=== PATIENT | female | born 1955 | race African-American/Black ===

== ENCOUNTER 2016-07-01 07:18 | Day surgery (SDC) | payer MEDICARE, BC ==
--- NOTE | ~2016-07-01 | EGD ---
EGD REPORT [facility] [address] [address] NAME: FLORENTIN SEYMOUR : [birth year] [place] [facility] [place] [id number] AGE: 60 ADM/REG DATE : 07/01/16 MR#: [id number] REPORT SERV DATE: 07/01/16 DICTATED BY: DAVIS WHITE DATE: 07/01/16 REPORT STATUS : Draft [facility]: [facility] DATE: 07/01/16 Endoscopy Center Patient Name: Florentin Seymour Date of : 1955 Attending MD: DAVIS WHITE MD Procedure Date No Time: 07/01/2016 Procedure: Colonoscopy Indications: Screening for colorectal malignant neoplasm Referring MD: YSLVIA OSBORNE Medicines: Monitored Anesthesia Care Complications: No immediate complications. Procedure: Pre-Anesthesia Assessment: - ASA Grade Assessment: III - A patient with severe systemic disease. After I obtained informed consent, the scope was passed under direct vision. Throughout the procedure, the patient's blood pressure, pulse, and oxygen saturations were monitored continuously. The CF [id number] was introduced through the anus and advanced to the cecum, identified by appendiceal orifice and ileocecal valve. The colonoscopy was performed without difficulty. The patient tolerated the procedure well. The quality of the bowel preparation was good. Findings: Hemorrhoids were found during retroflexion and were mild. A sessile polyp was found in the transverse colon. The polyp was 8 mm in size. The polyp was removed with a cold snare. Resection and retrieval were complete. Impression: - Hemorrhoids. - One 8 mm polyp in the transverse colon. Resected and retrieved. Recommendation: - Patient has a contact number available for emergencies. The signs and symptoms of potential delayed complications were discussed with the patient. Return to normal activities tomorrow. Written discharge instructions were provided to the patient. - Regular diet. - Continue present medications. - Repeat colonoscopy in 5-10 years for surveillance based on pathology results. - Return to GI clinic PRN. EGD REPORT [facility] [address] [address] NAME: FLORENTIN SEYMOUR : [birth year] [place] [facility] [place] [id number] AGE: 60 ADM/REG DATE : 07/01/16 MR#: [id number] REPORT SERV DATE: 07/01/16 DICTATED BY: DAVIS WHITE DATE: 07/01/16 REPORT STATUS : Draft TRANSCRIBED BY: [employer] DATE: 07/01/16 Procedure Code(s): --- Professional --- 77398, Colonoscopy, flexible, proximal to splenic flexure; with removal of tumor(s), polyp(s), or other lesion(s) by snare technique Diagnosis Code(s): --- Professional --- K64.9, Unspecified hemorrhoids D12.3, Benign neoplasm of transverse colon Z12.11, Encounter for screening for malignant neoplasm of colon CPT copyright 2013 [employer]. All rights reserved. The codes documented in this report are preliminary and upon hospice spiritual care coordinator review may be revised to meet current compliance requirements. DAVIS WHITE MD 07/01/2016 9:18 AM This report has been signed electronically. Number of Addenda: 0 Note Initiated On: 07/01/2016 8:43 AM Scope Withdrawal Time 0 hours 6 minutes 22 seconds [address] [place] [address]
--- NOTE | ~2016-07-01 | EGD ---
EGD REPORT [facility] [address] [address] NAME: FLORENTIN SEYMOUR : [birth year] [place] [facility] [place] [id number] AGE: 60 ADM/REG DATE : 07/01/16 MR#: [id number] REPORT SERV DATE: 07/01/16 DICTATED BY: DAVIS WHITE DATE: 07/01/16 REPORT STATUS : Draft [facility]: [facility] DATE: 07/01/16 Endoscopy Center Patient Name: Florentin Seymour Date of : 1955 Attending MD: DAVIS WHITE MD Procedure Date No Time: 07/01/2016 Procedure: Upper GI endoscopy Indications: Dysphagia, Esophageal reflux Referring MD: SYLVIA OSBORNE Medicines: Monitored Anesthesia Care Complications: No immediate complications. Procedure: Pre-Anesthesia Assessment: - ASA Grade Assessment: III - A patient with severe systemic disease. After obtaining informed consent, the endoscope was passed under direct vision. Throughout the procedure, the patient's blood pressure, pulse, and oxygen saturations were monitored continuously. The GIF [id number] was introduced through the mouth, and advanced to the second part of duodenum. The upper GI endoscopy was accomplished without difficulty. The patient tolerated the procedure well. Findings: No endoscopic abnormality was evident in the esophagus to explain the patient's complaint of dysphagia. It was decided, however, to proceed with dilation of the entire esophagus. A guidewire was placed and the scope was withdrawn. Dilation was performed with a Savary dilator with no resistance at 48 Fr. Estimated blood loss: none. A small hiatus hernia was present. The first part of the duodenum and 2nd part of the duodenum were normal. The cardia and gastric fundus were normal on retroflexion. Impression: - No endoscopic esophageal abnormality to explain patient's dysphagia. Esophagus dilated. Dilated. - Hiatus hernia. - Normal first part of the duodenum and 2nd part of the duodenum. Recommendation: - Follow an antireflux regimen. - Continue present medications. Procedure Code(s): --- Professional --- 90363, Esophagogastroduodenoscopy, flexible, transoral; with insertion of guide wire followed by passage of EGD REPORT [facility] [address] [place]. [address] NAME: FLORENTIN SEYMOUR : [birth year] [place] [facility] [place] [id number] AGE: 60 ADM/REG DATE : 07/01/16 MR#: [id number] REPORT SERV DATE: 07/01/16 DICTATED BY: DAVIS WHITE DATE: 07/01/16 REPORT STATUS : Draft TRANSCRIBED BY: [employer] DATE: 07/01/16 dilator(s) through esophagus over guide wire Diagnosis Code(s): --- Professional --- R13.10, Dysphagia, unspecified K44.9, Diaphragmatic hernia without obstruction or gangrene K21.9, Gastro-esophageal reflux disease without esophagitis CPT copyright 2013 [employer]. All rights reserved. The codes documented in this report are preliminary and upon system validation engineer review may be revised to meet current compliance requirements. DAVIS WHITE MD 07/01/2016 9:02 AM This report has been signed electronically. Number of Addenda: 0 Note Initiated On: 07/01/2016 8:52 AM Scope Withdrawal Time 0 hours 0 minutes 0 seconds [address] [place] [address]
[~2016-07-01 07:18] MED LIST: ASTEPRO0.15 % NAS; AZOR1 TA1 PO; CIP5 PO; CLARIT10 PO; DEMA20 PO; ENDOCET1 TA3 PO; ESTRACE0.5 MG PO; FLONASE NAS; LEVSINTAB PO; METANX PO; MUCINEX1200 MG PO; NEUR400 PO; POTASSIUM PO; PREV15 PO; RANITIDINE300 MG PO; SINGULAIR1 PO; TRAVATAN EYE DROPS; ZIAC10 PO
== END 2016-07-01 23:59 | disposition home or self-care (01) ==
LOC: DMU 07:18
PROVIDERS: Internal Medicine Gastroenterology
PROC: 0DBL8ZZ Excision of Transverse Colon, Via Natural or Artificial Opening Endoscopic (ICD-10-PCS; principal; 2016-07-01 08:30)
PROC: 0D758ZZ Dilation of Esophagus, Via Natural or Artificial Opening Endoscopic (ICD-10-PCS; 2016-07-01 08:30)
DX: Z12.11 Encounter for screening for malignant neoplasm of colon (principal); D12.3 Benign neoplasm of transverse colon; K64.9 Unspecified hemorrhoids; K21.9 Gastro-esophageal reflux disease without esophagitis; K44.9 Diaphragmatic hernia without obstruction or gangrene; I10 Essential (primary) hypertension; G89.29 Other chronic pain; G47.33 Obstructive sleep apnea (adult) (pediatric); Z88.5 Allergy status to narcotic agent; Z91.048 Other nonmedicinal substance allergy status; Z79.818 Long term (current) use of other agents affecting estrogen receptors and estrogen levels; Z79.899 Other long term (current) drug therapy
CPT/HCPCS: 88305